=== PATIENT | male | born 1980 | race Two or more races ===

== ENCOUNTER 2024-03-01 00:37 | Emergency (ER) | payer SELFPAY ==
[~2024-03-01] VITALS: Ht 188 cm; Wt 106.2 kg
[2024-03-01 01:06] VITALS: BP 188/128; PULSE 98; RESP 20; O2SAT 98
== END 2024-03-01 02:46 | disposition left against medical advice (07) ==
LOC: ER 00:37
DX: S81.802A Unspecified open wound, left lower leg, initial encounter (principal); S81.801A Unspecified open wound, right lower leg, initial encounter; Z53.21 Procedure and treatment not carried out due to patient leaving prior to being seen by health care provider; X58.XXXA Exposure to other specified factors, initial encounter; Y93.89 Activity, other specified; Y92.89 Other specified places as the place of occurrence of the external cause; Y99.8 Other external cause status

== ENCOUNTER 2025-02-24 10:43 | Inpatient (IN) | payer MEDICAID, OTHER ==
[~2025-02-24] VITALS: Ht 188 cm; Wt 78.2 kg
[2025-02-24 11:21] LABS: Basophils # (auto) 0.1 10 ^3/uL (0-0.2); Basophils % (auto) 0.7 % (0.0-2.0); Eosinophils # (auto) 0.1 10 ^3/uL (0-0.8); Eosinophils % (auto) 1.6 % (0.0-7.0); Hematocrit 55.5 % (41.0-53.0); Hemoglobin 18.7 g/dL (13.5-17.5); Lymphocytes # (auto) 1.6 10 ^3/uL (0.4-5.4); Lymphocytes % (auto) 18.9 % (10.0-50.0); Mean Corpuscular Hemoglobin 28.5 pg (28.0-32.0); Mean Corpuscular Hgb Conc. 33.8 g/dL (32.0-36.0); Mean Corpuscular Volume 84.4 fL (80.0-100.0); Monocytes # (auto) 0.8 10 ^3/uL (0-1.3); Monocytes % (auto) 9.9 % (0.0-12.0); Neutrophils # (auto) 5.7 10 ^3/uL (1.6-8.6); Neutrophils % (auto) 68.9 % (37.0-80.0); Nucleated Red Blood Cells % 0.3 %; Platelet Count (auto) 274 10^3/uL (140-450); Red Blood Cells 6.57 10^6/uL (4.5-5.90); White Blood Cell 8.3 10^3/uL (4.4-10.8)
--- NOTE | 2025-02-24 11:24 | ED.PDOC ---
History of Present Illness HPI Comments 44 y/o M, with a Hx of HTN and polysubstance abuse, presents with c/o shortness of breath and HTN, today. Patient endorses on sudden and unprovoked onset of difficulty breathing, this morning and checking and noticing his blood pressure being elevated. He reports on no improvement to blood pressure with his current 10mg Lisinopril he, usually, takes 1x/day. Patient states on being released from incarceration, last night. During his incarceration, patient reports on 1 hospital visit at [facility] for HTN. Upon arrival to ED and time of initial assessment, patient was found with a blood pressure of 119/98. Patient also admits to recent methamphetamine use 1x week ago. He denies any chest pain, palpitations, dizziness, headache, lightheadedness, fever, chills, or other associated symptoms or modifiers at this time. Chief Complaint: Shortness of Breath Time Seen by MD: 11:00 Reviewed Notes: Nurses Notes, Medications, Allergies Allergies: Coded Allergies: Naproxen (Verified Allergy, Mild, hives, 02/24/25) Information Source: Patient Mode of Arrival: Wheelchair Severity: Moderate Timing: Hours Duration: Since onset Prehospital treatment: None Past Medical History PAST MEDICAL HISTORY: HTN Surgical History (Other): left-shoulder Family History Family History: Unknown Social History Smoker: Cigarettes Alcohol: Occasionally Drugs: Marijuana, Methamphetamine Lives In: Home Constitutional: denies: chills, diaphoresis, fatigue, fever, malaise, sweats, weakness, others EENTM: denies: blurred vision, double vision, ear bleeding, ear discharge, ear drainage, ear pain, ear ringing, eye pain, eye redness, hearing loss, mouth pain, mouth swelling, nasal discharge, nose bleeding, nose congestion, nose pain, photophobia, tearing, throat pain, throat swelling, voice changes, others Respiratory: reports: shortness of breath; denies: cough, hemoptysis, orthopnea, SOB at rest, SOB with excertion, stridor, wheezing, others Cardiovascular: denies: chest pain, dizzy spells, diaphoresis, Dyspnea on exertion, edema, irregular heart beat, left arm pain, lightheadedness, palpitations, PND, syncope, others Gastrointestinal: denies: abdomen distended, abdominal pain, blood streaked bowels, constipated, diarrhea, dysphagia, difficulty swallowing, hematemesis, melena, nausea, poor appetite, poor fluid intake, rectal bleeding, rectal pain, vomiting, others Genitourinary: denies: burning, dysuria, flank pain, frequency, hematuria, incontinence, penile discharge, penile sore, pain, testicle pain, testicle swelling, urgency, others Neurological: denies: dizziness, fainting, headache, left sided numbness, left sided weakness, numbness, paresthesia, pre-existing deficit, right sided numbness, right sided weakness, seizure, speech problems, tingling, tremors, weakness, others Musculoskeletal: denies: back pain, gout, joint pain, joint swelling, muscle pain, muscle stiffness, neck pain, others Integumetry: denies: bruises, change in color, change in hair/nails, dryness, laceration, lesions, lumps, rash, wounds, others Allergic/Immunocompromised: denies: Difficulty Healing, Frequent Infections, Hives, Itching, others Hematologic/Lymphatic: reports: others (HTN); denies: anemia, blood clots, easy bleeding, easy bruising, swollen glands Endocrine: denies: excessive hunger, excessive sweating, excessive thirst, excessive urination, flushing, intolerance to cold, intolerance to heat, unexplained weight gain, unexplained weight loss, others Psychiatric: denies: anxiety, bipolar disorder, depression, hopeless, panic disorder, schizophrenia, sleepless, suicidal, others All Other Systems: Reviewed and Negative Physical Exam General Appearance: Moderate Distress HEENT: Normal ENT Inspection, Pharynx Normal, TMs Normal Neck: Full Range of Motion, Non-Tender, Normal, Normal Inspection Respiratory: Chest Non-Tender, Lungs Clear, No Accessory Muscle Use, No Respiratory Distress, Normal Breath Sounds Cardiovascular: No Edema, No JVD, No Murmur, No Gallop, Normal Peripheral Pulses, Regular Rate/Rhythm Breast Exam: Deferred Gastrointestinal: No Organomegaly, Non Tender, No Pulsatile Mass, Normal Bowel Sounds, Soft Genitalia: Deferred Pelvic: Deferred Rectal: Deferred Extremities: No calf tenderness, Normal capillary refill, Normal inspection, Normal range of motion, Non-tender, No pedal edema Musculoskeletal : Apperance: Normal Neurologic: Alert, child center assistant II-XII nml as Tested, No Motor Deficits, Normal Affect, Normal Mood, No Sensory Deficits Cerebellar Function: Normal Reflexes: Normal Skin: Dry, Normal Color, Warm Lymphatic: No Adenopathy Was a procedure done? Was a procedure done?: No EKG EKG : Pulse Rate (adult): 85 [place]: Normal Cardiac Rhythm: NSR Block: None Hypertrophy: None ST: Ischemia Differential Dx Considerations may include: URI, viral syndrome, PNA, MA, PE, inappropriate medication dosage, among others X-Ray, Labs, Meds, VS Vital Signs Date Time Temp Pulse Resp B/P (MAP) Pulse Ox O2 Delivery O2 Flow Rate FiO2 02/24/25 11:54 86 02/24/25 11:38 98.8 89 16 119/98 (105) 97 98.8 02/24/25 11:24 85 02/24/25 10:57 85 Lab Test 02/24/25 13:51 02/24/25 12:00 02/24/25 11:47 02/24/25 11:02 Range/Units Troponin I High Sensitivity Pending 20 23 </=54 ng/L Urine Color Yellow Yellow Urine Clarity Clear Clear Urine pH 5.5 5.0-9.0 Urine Specific [place] 1.031 1.001-1.035 Urine Protein Trace H Negative Urine Ketones Negative Negative Urine Blood Negative Negative /uL Urine Nitrite Negative Negative Urine Bilirubin Negative Negative Urine Urobilinogen 2 H Negative mg/dL Urine Leukocyte Esterase Negative Negative /uL Urine RBC 2 0 - 3 /hpf Urine Microscopic WBC 2 0-3 /HPF Urine Squamous Epithelial Cells Few <5 /hpf Urine Bacteria Few H None Seen /hpf Urine Mucus Few None Seen Urine Glucose Normal Normal mg/dL Urine Opiates Screen Neg NEGATIVE Urine Fentanyl Screen Neg NEGATIVE Urine Barbiturates Screen Neg NEGATIVE Urine Phencyclidine Screen Neg NEGATIVE Urine Amphetamines Screen Neg NEGATIVE Urine Benzodiazepines Screen Neg NEGATIVE Urine Cocaine Screen Neg NEGATIVE Urine Cannabinoids Screen Pos NEGATIVE White Blood Count 8.3 4.4-10.8 10^3/uL Red Blood Count 6.57 H 4.5-5.90 10^6/uL Hemoglobin 18.7 H 13.5-17.5 g/dL Hematocrit 55.5 H 41.0-53.0 % Mean Corpuscular Volume 84.4 80.0-100.0 fL Mean Corpuscular Hemoglobin 28.5 28.0-32.0 pg Mean Corpuscular Hemoglobin Concent 33.8 32.0-36.0 g/dL Red Cell Distribution Width 16.0 H 11.8-14.3 % Platelet Count 274 140-450 10^3/uL Mean Platelet Volume 7.8 6.9-10.8 fL Neutrophils (%) (Auto) 68.9 37.0-80.0 % Lymphocytes (%) (Auto) 18.9 10.0-50.0 % Monocytes (%) (Auto) 9.9 0.0-12.0 % Eosinophils (%) (Auto) 1.6 0.0-7.0 % Basophils (%) (Auto) 0.7 0.0-2.0 % Neutrophils # (Auto) 5.7 1.6-8.6 10 ^3/uL Lymphocytes # (Auto) 1.6 0.4-5.4 10 ^3/uL Monocytes # (Auto) 0.8 0-1.3 10 ^3/uL Eosinophils # (Auto) 0.1 0-0.8 10 ^3/uL Basophils # (Auto) 0.1 0-0.2 10 ^3/uL Nucleated Red Blood Cells 0.3 % Sodium Level 138 136-145 mmol/L Potassium Level 4.3 3.5-5.1 mmol/L Chloride Level 106 98-107 mmol/L Carbon Dioxide Level 22 20-31 mmol/L Anion Gap 10 5-15 Blood Urea Nitrogen 25 H 9-23 mg/dL Creatinine 0.96 0.700-1.30 mg/dL Glomerular Filtration Rate Calc 99 >90 mL/min BUN/Creatinine Ratio 26.0 H 10.0-20.0 Serum Glucose 98 74-106 mg/dL Hemoglobin A1c Pending Calcium Level 10.1 8.7-10.4 mg/dL B-Type Natriuretic Peptide 68.98 0-100 pg/mL Triglycerides Level Pending Cholesterol Level Pending LDL Cholesterol Pending HDL Cholesterol Pending Thyroid Stimulating Hormone (TSH) Pending IV Hep-Lock was established. The CBC is within normal limits. The chemistry panel is within normal limits. At this time the patient's urine tox is positive for marijuana The urine test is negative for infection at this time The patient's EKG still shows significant ischemia so we did send it over to the car and yard supervisor and they did come down and evaluate the patient. We will continue to follow the serial troponin levels but because of the ongoing symptoms as well as the ischemia we feel that the patient is unstable for transfer to [facility]. We did get an authorization from [facility] for admission at it was [id number] Images Reviewed?: Images reviewed and evaluated by me Time of 1ST Reevaluation: 11:30 Reevaluation 1ST: Unchanged Patient Education/Counseling: Diagnosis, Treatment, Prognosis Family Education/Counseling: No Family Present Departure 1 Departure Time of Disposition: 14:30 Impression: Primary Impression: Acute myocardial ischemia Additional Impression: Accelerated hypertension Disposition: 09 ADMITTED INPATIENT Admit to: [facility] Condition: Fair Critical Care Note Critical Care Time?: Yes (55 min-critical care time only) Stability Stability form required: Yes Unstable for transfer: Telemetry monitoring (Telemetry monitoring required), ED Physician Assesment (Clinical assesment) Heart Score Heart Score: Heart Score Response (Comments) Value History Moderate Suspicious 1 EKG Normal 0 Age 45-64 1 Risk Factors 1 or 2 risk factors 1 Troponin Normal limit 0 Total 3 I personally scribed for DON NORMAN MD ([email or web address]) on 02/24/25 at 11:24. Electronically submitted by Caden Salazar ([email or web address]). DON NORMAN MD Feb 24, 2025 11:24
[2025-02-24 11:29] LABS: Chloride 106 mmol/L (98-107); Potassium 4.3 mmol/L (3.5-5.1); Sodium 138 mmol/L (136-145)
--- NOTE | 2025-02-24 11:29 | DVH ---
XY CHEST TWO VIEWS ROUTINE CLINICAL HISTORY: sob COMPARISON: None TECHNIQUE: Frontal and lateral view of the chest was obtained FINDINGS: Lines and Tubes: None Lungs: No focal consolidation. Pleura: No effusion. No pneumothorax. Cardiomediastinal contours: Unremarkable Bones: No acute osseous abnormality. Old left clavicular fracture. ORIF left humerus. IMPRESSION: 1. No acute cardiopulmonary disease.
[2025-02-24 11:30] LABS: Anion Gap 10 (5-15); Calcium 10.1 mg/dL (8.7-10.4); Carbon Dioxide 22 mmol/L (20-31)
[2025-02-24 11:35] LABS: Blood Urea Nitrogen 25 mg/dL (9-23); Glucose 98 mg/dL (74-106)
[2025-02-24 12:48] LABS: Urine Bacteria FEW /hpf (None Seen); Urine Blood Negative /uL (Negative); Urine Clarity Clear (Clear); Urine Color Yellow (Yellow); Urine Mucus FEW (None Seen); Urine Protein, UAD TRACE (Negative); Urine Specific Gravity 1.031 (1.001-1.035); Urine Squamous Epithelial Cell FEW /hpf (<5); Urine Urobilinogen 2 mg/dL (Negative); Urine WBC 2 /HPF (0-3); Urine pH 5.5 (5.0-9.0)
[2025-02-24 13:00] LABS: Amphetamine Screen, Urine Neg (NEGATIVE)
[2025-02-24 13:01] LABS: Cannabinoid Screen, Urine Pos (NEGATIVE)
[2025-02-24 13:02] LABS: Barbiturate Scree,Urine Neg (NEGATIVE); Benzodiazephine Screen, Urine Neg (NEGATIVE); Cocaine Screen, Urine Neg (NEGATIVE); Opiate Scree,Urine Neg (NEGATIVE); Phencyclidine Screen, Urine Neg (NEGATIVE)
[2025-02-24 14:41] LABS: Triglycerides 123 mg/dL (< 150)
[2025-02-24 14:43] LABS: Cholesterol 174 mg/dL (< 200); HDL Cholesterol 46 mg/dL (40-59)
[2025-02-24 14:46] LABS: LDL Cholesterol 110 mg/dL (< 100)
[2025-02-24 15:47] VITALS: RESP 15; O2SAT 97
[2025-02-24] MEDS: cloNIDine HCL 0.1 MG TAB PO ONE (16:30)
[2025-02-24] MEDS ORDERED: LISI20TA56 PO (16:33)
--- NOTE | 2025-02-24 16:36 | DVHHP2 ---
History of Present Illness Reason for Visit: Shortness of breath History of Present Illness Tyrese Giron IV is a 44-year-old male with past medical history of hypertension, and polysubstance abuse, who comes in with complaints of shortness of breath. Patient states that he has been experiencing shortness of breath for about a week. However, he was incarcerated for the last week and was just released today, so his had him come to the hospital. Patient has a history of hypertension. While incarcerated his BP was elevated with SBP over 200 that he was taken to [facility]. His blood pressure was treated, but his shortness of breath was not addressed. Patient also has complaints of bilateral lower extremity swelling and redness. Cardiovascular: HTN Past Surgical History: Other (left shoulder surgery 2014) Smoke: <1 pack per day ALCOHOL: rare Drugs: Marijuana, Other (methamphetamine - quite 1 week ago) Lives: with Family Domestic Violence: Neg Review of Systems Constitutional: No: Fever, Chills, Sweats, Weakness, Malaise, Other Eyes: No: Pain, Vision change, Conjunctivae inflammation, Eyelid inflammation, Other, Redness ENT: No: Ear pain, Ear discharge, Nose pain, Nose discharge, Nose congestion, Mouth pain, Mouth swelling, Throat pain, Throat swelling, Other Respiratory: Shortness of breath (at rest), SOB with excertion; No: Cough, Dry, Wheezing, Hemoptysis, Pleuritic Pain, Sputum, Wheezing, Other Cardiovascular: Edema (bilateral lower extremities with redness); No: Chest Pain, Palpitations, Orthopnea, Paroxysmal Noc. Dyspnea, Lt Headedness, Other Gastrointestinal: No: Nausea, Vomiting, Abdominal Pain, Diarrhea, Constipation, Melena, Hematochezia, Other Genitourinary: No Dysuria, No Frequency, No Incontinence, No Hematuria, No Re tention, No Other Musculoskeletal: No: other, neck pain, shoulder pain, arm pain, back pain, hand pain, leg pain, foot pain Skin: No: Rash, Lesions, Jaundice, Bruising, Other Neurological: Other (dizziness); No: Weakness, Numbness, Incoordination, Change in speech, Confusion, Seizures Allergies: Coded Allergies: Naproxen (Verified Allergy, Mild, hives, 02/24/25) Medications Current Medications Medications Dose Ordered Sig/[place] Route Start Time Stop Time Status Last Admin Dose Admin Sodium Chloride 10 ml Q8HR IV 02/24/25 22:00 UNV Acetaminophen/ Hydrocodone Bitart 1 tab Q4HP PRN PO 02/24/25 16:45 UNV Ondansetron HCl 4 mg Q4HP PRN IV 02/24/25 16:45 UNV Docusate Sodium 100 mg BIDPRN PRN PO 02/24/25 16:45 UNV Acetaminophen 650 mg Q6HP PRN PO 02/24/25 16:45 UNV Nitroglycerin 0.4 mg Q5MINP PRN SL 02/24/25 16:45 UNV Morphine Sulfate 2 mg Q30M PRN IV 02/24/25 16:45 UNV Lisinopril 20 mg DAILY PO 02/25/25 10:00 UNV Exam Vital Signs Vital Signs Date Time Temp Pulse Resp B/P (MAP) Pulse Ox O2 Delivery O2 Flow Rate FiO2 02/24/25 16:30 142/94 02/24/25 15:47 15 97 Room Air* 0 21 02/24/25 15:47 98.0 94 98.0 General Appearance: Alert, Oriented X3, Cooperative, moderate distress HEENT: Atraumatic, PERRLA Respiratory: Clear to auscultation, Normal air movement Cardiovascular: Regular rate, Normal S1, Normal S2 Abdominal: Normal bowel sounds, Soft, No tenderness Extremities: No clubbing, No cyanosis, Other (Redness, swelling, pain to bilate ral lower extremities) Skin: No rashes, No breakdown, No significant lesion Neuro: Normal gait, Normal speech, Strength at 5/5 X4 ext, Normal tone Psych/Mental Status: Mental status NL, Mood NL Labs/Xrays Labs Test 02/24/25 13:51 02/24/25 12:00 02/24/25 11:02 Range/Units Troponin I High Sensitivity 21 </=54 ng/L Urine Color Yellow Yellow Urine Clarity Clear Clear Urine pH 5.5 5.0-9.0 Urine Specific [place] 1.031 1.001-1.035 Urine Protein Trace H Negative Urine Ketones Negative Negative Urine Blood Negative Negative /uL Urine Nitrite Negative Negative Urine Bilirubin Negative Negative Urine Urobilinogen 2 H Negative mg/dL Urine Leukocyte Esterase Negative Negative /uL Urine RBC 2 0 - 3 /hpf Urine Microscopic WBC 2 0-3 /HPF Urine Squamous Epithelial Cells Few <5 /hpf Urine Bacteria Few H None Seen /hpf Urine Mucus Few None Seen Urine Glucose Normal Normal mg/dL Urine Opiates Screen Neg NEGATIVE Urine Fentanyl Screen Neg NEGATIVE Urine Barbiturates Screen Neg NEGATIVE Urine Phencyclidine Screen Neg NEGATIVE Urine Amphetamines Screen Neg NEGATIVE Urine Benzodiazepines Screen Neg NEGATIVE Urine Cocaine Screen Neg NEGATIVE Urine Cannabinoids Screen Pos NEGATIVE White Blood Count 8.3 4.4-10.8 10^3/uL Red Blood Count 6.57 H 4.5-5.90 10^6/uL Hemoglobin 18.7 H 13.5-17.5 g/dL Hematocrit 55.5 H 41.0-53.0 % Mean Corpuscular Volume 84.4 80.0-100.0 fL Mean Corpuscular Hemoglobin 28.5 28.0-32.0 pg Mean Corpuscular Hemoglobin Concent 33.8 32.0-36.0 g/dL Red Cell Distribution Width 16.0 H 11.8-14.3 % Platelet Count 274 140-450 10^3/uL Mean Platelet Volume 7.8 6.9-10.8 fL Neutrophils (%) (Auto) 68.9 37.0-80.0 % Lymphocytes (%) (Auto) 18.9 10.0-50.0 % Monocytes (%) (Auto) 9.9 0.0-12.0 % Eosinophils (%) (Auto) 1.6 0.0-7.0 % Basophils (%) (Auto) 0.7 0.0-2.0 % Neutrophils # (Auto) 5.7 1.6-8.6 10 ^3/uL Lymphocytes # (Auto) 1.6 0.4-5.4 10 ^3/uL Monocytes # (Auto) 0.8 0-1.3 10 ^3/uL Eosinophils # (Auto) 0.1 0-0.8 10 ^3/uL Basophils # (Auto) 0.1 0-0.2 10 ^3/uL Nucleated Red Blood Cells 0.3 % Sodium Level 138 136-145 mmol/L Potassium Level 4.3 3.5-5.1 mmol/L Chloride Level 106 98-107 mmol/L Carbon Dioxide Level 22 20-31 mmol/L Anion Gap 10 5-15 Blood Urea Nitrogen 25 H 9-23 mg/dL Creatinine 0.96 0.700-1.30 mg/dL Glomerular Filtration Rate Calc 99 >90 mL/min BUN/Creatinine Ratio 26.0 H 10.0-20.0 Serum Glucose 98 74-106 mg/dL Hemoglobin A1c 5.9 H <5.7 % A1C Calcium Level 10.1 8.7-10.4 mg/dL B-Type Natriuretic Peptide 68.98 0-100 pg/mL Triglycerides Level 123 < 150 mg/dL Cholesterol Level 174 < 200 mg/dL LDL Cholesterol 110 H < 100 mg/dL HDL Cholesterol 46 40-59 mg/dL Thyroid Stimulating Hormone (TSH) 3.07 0.55-4.78 uIU/mL XY CHEST TWO VIEWS ROUTINE FINDINGS: Lines and Tubes: None Lungs: No focal consolidation. Pleura: No effusion. No pneumothorax. Cardiomediastinal contours: Unremarkable Bones: No acute osseous abnormality. Old left clavicular fracture. ORIF left humerus. IMPRESSION: 1. No acute cardiopulmonary disease. Assessment/Plan Assessment/Plan Assessment: Accelerated hypertension, Bilateral cellulitis, Possible [place], Plan: Admit to Tele, Cardiology consult, Social service consult, ECHO, TSH, A1c, Lipid panel, IV antibiotics, IV diuretics, Home medications reconciled, Plan discussed with: Patient My Orders Orders - RHIANNON DURON SCIENCE ANALYST Procedure Category Date Status Time Lisinopril Tablet PHA 02/24/25 Logged (Zestril Tablet) 16:45 Admit ADMIT 02/24/25 Transmitted 16:31 Code Status CODE 02/24/25 Transmitted 16:31 2 Gm Sodium Diet DIET 02/24/25 Transmitted Dinner Sodium Chloride Lock PHA 02/24/25 Logged (Saline Lock Ns) 22:00 Hydrocodone-Acet PHA 02/24/25 Logged 5/325mg Tab ([place] 16:45 Ondansetron Hcl PHA 02/24/25 Logged (Zofran) 16:45 Docusate Sodium PHA 02/24/25 Logged Capsule (Colace 16:45 Complete Blood Count LAB 02/25/25 Verified 04:00 Comprehensive LAB 02/25/25 Verified Metabolic Panel 04:00 Condition: Serious MARIYA 02/24/25 In Process 16:31 Acetaminophen Tablet PHA 02/24/25 Logged (Tylenol Tablet) 16:45 Nitroglycerin PHA 02/24/25 Logged Sublingual (Ntrostat 16:45 Morphine Sulfate PHA 02/24/25 Logged Injection 16:45 Stat Ekg For Chest MARIYA 02/24/25 In Process Pain 16:31 Notify Md Of Changes [facility] 02/24/25 In Process From Base 16:31 Correctional Medicine Physician For [facility] 02/24/25 In Process 24 Hours 16:31 Emergency Dysrhythmia [facility] 02/24/25 In Process Protocol 16:31 Rhythm Strips Once [facility] 02/24/25 In Process Every Shift 16:31 Oxygen By Nasal 02/24/25 Transmitted Cannula 16:31 Lisinopril Tablet [facility] 02/25/25 Logged (Zestril Tablet) 10:00 Furosemide Injection [facility] 02/24/25 Logged (Lasix Injection) 16:45 Clindamycin Ivpb [facility] 02/24/25 Verified Cleocin 22:00 Date of Service: Feb 24, 2025 Billing Provider: RHIANNON DURON Common Visit Codes: [id number] INP/OBS CARE (MOD) RHIANNON DURON Feb 24, 2025 16:36
[2025-02-24] MEDS ORDERED: HYDROcodone-ACET 5/325MG TAB PO PRN (16:45)
[2025-02-24] MEDS ORDERED: ONDANSETRON HCL 4 MG/2 ML VIAL IV PRN (16:45)
[2025-02-24] MEDS ORDERED: MORPHINE SULFATE INJ 2 MG/ml SYRG IV PRN (16:45)
[2025-02-24] MEDS ORDERED: ACETAMINOPHEN 325 MG TAB PO PRN (16:45)
[2025-02-24] MEDS ORDERED: DOCUSATE SOD 100 MG CAP PO PRN (16:45)
[2025-02-24] MEDS ORDERED: NITROGLYCERIN 0.4 MG SL TAB SL PRN (16:45)
--- NOTE | 2025-02-24 18:33 | DVHINCON2 ---
Date Seen: Feb 24, 2025 Referring Physician MD Hayde Reason for Consultation Ischemic ECG changes History of Present Illness This is a 44-year-old man who presented to the emergency room with a chief complaint of shortness of breath. The patient complains of exertional shortness of breath associated with dizziness, diaphoresis, and some palpitations prompting him to seek further medical attention. He underwent multiple 12 lead electrocardiograms revealing a sinus rhythm with dynamic changes including ST segment depression to anteroseptal leads. Serial troponins are negative. The patient endorses some of his symptoms might be secondary to uncontrolled blood pressure as he recently presented to [facility] and this past Sunday with a systolic blood pressure in the 200s mmHg. At that time, he was discharged from the emergency room on antihypertensive therapy and antibiotics for his lower extremities. Significant medical history includes hypertension, current tobacco use including a 13 pack-year history, current methamphetamine use on/off for 12 years, and alcohol use including 1-2 beers/day. Past Medical History Past medical history reviewed. No other significant than mentioned above. Past Surgical History Left shoulder, 2014 Family History Family history reviewed. Significant for father with CHF and PPM. Social History See HPI. Allergies: Coded Allergies: Naproxen (Verified Allergy, Mild, hives, 02/24/25) Home Meds Reported Medications Lisinopril (Lisinopril) 20 Mg Tab, 1 TAB PO DAILY, #30 TAB 5 Refills 02/24/25 Home Meds Home medications reviewed. Current Medications Current Medications Medications (Trade) Dose Ordered Sig/Belen Route PRN Reason Start Time Stop Time Status Last Admin Sodium Chloride (Saline Lock Ns) 10 ml Q8HR IV 02/24/25 22:00 Acetaminophen/ Hydrocodone Bitart ([place] 5/325MG Tab) 1 tab Q4HP PRN PO MODERATE PAIN (4-6 PAIN SCALE) 02/24/25 16:45 Ondansetron HCl (Zofran) 4 mg Q4HP PRN IV NAUSEA / VOMITING 02/24/25 16:45 Docusate Sodium (Colace Capsule) 100 mg BIDPRN PRN PO FOR CONSTIPATION 02/24/25 16:45 Acetaminophen (Tylenol Tablet) 650 mg Q6HP PRN PO PAIN SCALE 1-3 OR TEMP>100.4 02/24/25 16:45 Nitroglycerin (Ntrostat Sublingual) 0.4 mg Q5MINP PRN SL FOR CHEST PAIN 02/24/25 16:45 Morphine Sulfate 2 mg Q30M PRN IV FOR CHEST PAIN 02/24/25 16:45 Lisinopril (Zestril Tablet) 20 mg DAILY PO 02/25/25 10:00 Clindamycin Phosphate 50 ml @ 50 mls/hr 0600,0700,1400,1500,2200,2300 IV 02/24/25 22:00 Furosemide (Lasix Injection) 20 mg DAILY IV 02/25/25 10:00 Review of Systems Constitutional: Diaphoresis Ears, Nose, & Throat: No symptom reported Eyes: No symptom reported Neurological: Dizziness Pulmonary/Respiratory: ARREDONDO Cardiovascular: No symptom reported Gastrointestinal: No symptom reported Genitourinary: No symptom reported Musculoskeletal: No symptom reported Skin: No symptom reported Psychiatric: No symptom reported Endocrine: No symptom reported Hemotologic/Lymphatic: No symptom reported Vital Signs Vital Signs Date Time Temp Pulse Resp B/P (MAP) Pulse Ox O2 Delivery O2 Flow Rate FiO2 02/24/25 16:30 142/94 02/24/25 15:47 15 97 Room Air* 0 21 02/24/25 15:47 98.0 94 98.0 Physical Exam General Appearance: Cooperative. Unkept. Somewhat disheveled. In no acute distress Head Exam: Normal inspection Neck Exam: Normal inspection. Non-tender. Normal alignment Pulmonary/Respiratory: Chest non-tender. Clear bilateral breath sounds Cardiovascular/Chest: Regular rate and rhythm. S1, S2. Sinus rhythm with dynamic changes including ST depression to anteroseptal leads. No murmurs. No JVD. Peripheral Pulses: 2+ Radial (R). 2+ Radial (L). 2+ Pedal (R). 2+ Pedal (L) Abdominal Exam: Normal bowel sounds. Soft. Ankle Exam: Positive ankle edema Lower extremities: Positive lower extremity edema Neuro/Mental Status: A&O x3. Coherent Thoughts/Psych: Normal thought pattern. Appropriate mood and affect. Good judgement and insight Appearance: In no acute distress Skin Exam: Hyperkeratosis to bilateral lower extremities Labs/Diagnostic Data Labs Test 02/24/25 13:51 02/24/25 12:00 02/24/25 11:02 Range/Units Troponin I High Sensitivity 21 </=54 ng/L Urine Color Yellow Yellow Urine Clarity Clear Clear Urine pH 5.5 5.0-9.0 Urine Specific [place] 1.031 1.001-1.035 Urine Protein Trace H Negative Urine Ketones Negative Negative Urine Blood Negative Negative /uL Urine Nitrite Negative Negative Urine Bilirubin Negative Negative Urine Urobilinogen 2 H Negative mg/dL Urine Leukocyte Esterase Negative Negative /uL Urine RBC 2 0 - 3 /hpf Urine Microscopic WBC 2 0-3 /HPF Urine Squamous Epithelial Cells Few <5 /hpf Urine Bacteria Few H None Seen /hpf Urine Mucus Few None Seen Urine Glucose Normal Normal mg/dL Urine Opiates Screen Neg NEGATIVE Urine Fentanyl Screen Neg NEGATIVE Urine Barbiturates Screen Neg NEGATIVE Urine Phencyclidine Screen Neg NEGATIVE Urine Amphetamines Screen Neg NEGATIVE Urine Benzodiazepines Screen Neg NEGATIVE Urine Cocaine Screen Neg NEGATIVE Urine Cannabinoids Screen Pos NEGATIVE White Blood Count 8.3 4.4-10.8 10^3/uL Red Blood Count 6.57 H 4.5-5.90 10^6/uL Hemoglobin 18.7 H 13.5-17.5 g/dL Hematocrit 55.5 H 41.0-53.0 % Mean Corpuscular Volume 84.4 80.0-100.0 fL Mean Corpuscular Hemoglobin 28.5 28.0-32.0 pg Mean Corpuscular Hemoglobin Concent 33.8 32.0-36.0 g/dL Red Cell Distribution Width 16.0 H 11.8-14.3 % Platelet Count 274 140-450 10^3/uL Mean Platelet Volume 7.8 6.9-10.8 fL Neutrophils (%) (Auto) 68.9 37.0-80.0 % Lymphocytes (%) (Auto) 18.9 10.0-50.0 % Monocytes (%) (Auto) 9.9 0.0-12.0 % Eosinophils (%) (Auto) 1.6 0.0-7.0 % Basophils (%) (Auto) 0.7 0.0-2.0 % Neutrophils # (Auto) 5.7 1.6-8.6 10 ^3/uL Lymphocytes # (Auto) 1.6 0.4-5.4 10 ^3/uL Monocytes # (Auto) 0.8 0-1.3 10 ^3/uL Eosinophils # (Auto) 0.1 0-0.8 10 ^3/uL Basophils # (Auto) 0.1 0-0.2 10 ^3/uL Nucleated Red Blood Cells 0.3 % Sodium Level 138 136-145 mmol/L Potassium Level 4.3 3.5-5.1 mmol/L Chloride Level 106 98-107 mmol/L Carbon Dioxide Level 22 20-31 mmol/L Anion Gap 10 5-15 Blood Urea Nitrogen 25 H 9-23 mg/dL Creatinine 0.96 0.700-1.30 mg/dL Glomerular Filtration Rate Calc 99 >90 mL/min BUN/Creatinine Ratio 26.0 H 10.0-20.0 Serum Glucose 98 74-106 mg/dL Hemoglobin A1c 5.9 H <5.7 % A1C Calcium Level 10.1 8.7-10.4 mg/dL B-Type Natriuretic Peptide 68.98 0-100 pg/mL Triglycerides Level 123 < 150 mg/dL Cholesterol Level 174 < 200 mg/dL LDL Cholesterol 110 H < 100 mg/dL HDL Cholesterol 46 40-59 mg/dL Thyroid Stimulating Hormone (TSH) 3.07 0.55-4.78 uIU/mL Assessment Acute coronary syndrome Rule out coronary artery disease Rule out structural heart disease Hypertension Dyslipidemia, newly diagnosed Prediabetes, newly diagnosed Polysubstance abuse including methamphetamines Nicotine dependance Plan/Recommendation (Dr. Arora) Case discussed with Dr. Arora. The patient presents with acute coronary syndrome, dynamic 12 lead electrocardiogram changes suggestive of possible LAD lesion, and a Heart Score of 7 placing him at high-risk for major cardiac events. Given polysubstance abuse a conversation was held with the patient in regards of aggressive risk factor modifications. The patient states he wants to see his 7 y.o. son grow up and moving forward he will comply with any medical recommendations given. He is scheduled for a cardiac catheterization and coronary angiogram with Dr. Arora on 02/25/2025. All risks and benefits of the procedure were discussed with the patient who agrees to proceed with intervention. All questions answered. In the meantime, continue with a transthoracic echocardiogram to evaluate cardiac function. Initiate single- antiplatelet therapy and lipid lowering agent. Monitor ECG changes closely and notify. Obtain head CT. Thank you for allowing us to participate in this patient's care. Please call if you have any questions or concerns. This medical document was created using an electronic medical record system with voice recognition software and computerized dictation system. Although this document has been carefully reviewed, there might still be some phonetic and typographical errors. Occasional wrong-word or ``sound-alike substitutions may have occurred due to the inherent limitations of voice recognition software. These areas are purely typographical due to imperfections of the software programs and do not reflect any compromise in the patient's medical care. Please read the chart carefully and recognize, using context, where these substitutions have occurred. Plan discussed with: Patient, Other NYHA Physical activity limitations: NA Date of Service: Feb 24, 2025 Billing Provider: JOHAN MENENDEZ Cardiology Common Codes: 32938-[id number] INP/OBS CARE (High) JOHAN MENENDEZ Feb 24, 2025 18:33
--- NOTE | 2025-02-24 19:45 | DVH ---
CT HEAD WITHOUT CONTRAST INDICATION: Persistent dizziness COMPARISON: None TECHNIQUE: CT of the head without intravenous contrast. RADIATION DOSE: CTDIvol: 56.63 mGy, DLP: 1002.81 mGy*cm FINDINGS: There is no evidence of intracranial hemorrhage, infarct, extra-axial collection, mass effect, midli ne shift, herniation or hydrocephalus. The ventricles, sulci and cisterns are normal. The mccoy-white differentiation is normal. Evidence of a left-sided nasolabial cyst measuring up to 2 cm. Minimal mucosal thickening in maxillar y sinuses; otherwise unremarkable. Mastoid air cells and middle ear cavities are clear. Evidence of m ild old fracture of right medial orbital wall. No additional osseous abnormality noted. IMPRESSION: No intracranial abnormality identified.
--- NOTE | 2025-02-24 23:09 | ECG ---
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
[2025-02-24] MEDS: SODIUM CHLOR 0.9% PF (SALINE LOCK) 10ML VIAL/SYR IV SCH (23:23)
[2025-02-24] MEDS: LISINOPRIL 20 MG TAB PO ONE (23:34)
[2025-02-24] MEDS: ASPirin 81 mg TAB PO ONE (23:34)
[2025-02-24] MEDS: FUROSEMIDE 20 MG/2 ML VIAL IV ONE (23:34)
[2025-02-24] MEDS: ATORVASTATIN 20 MG TAB PO SCH (23:34)
[2025-02-24] MEDS: ENOXAPARIN SOD 80 MG/0.8ML SYRINGE SC ONE (23:35)
[2025-02-24 23:48] VITALS: BP 152/92; PULSE 86; PULSE 88; RESP 18; RESP 19; TEMP 98.2; O2SAT 96
[2025-02-25] VITALS (8 sets, daily range): BP systolic 121–167; BP diastolic 77–112; PULSE 70–90; RESP 15–19; TEMP 97.4–97.5; O2SAT 95–99
[2025-02-25] MEDS: CLINDAMYCIN 300MG IV 50 ML IV SCH
[2025-02-25 04:36] LABS: Basophils # (auto) 0.1 10 ^3/uL (0-0.2); Basophils % (auto) 0.8 % (0.0-2.0); Eosinophils # (auto) 0.3 10 ^3/uL (0-0.8); Eosinophils % (auto) 4.2 % (0.0-7.0); Hematocrit 53.4 % (41.0-53.0); Hemoglobin 17.2 g/dL (13.5-17.5); Lymphocytes # (auto) 2.1 10 ^3/uL (0.4-5.4); Lymphocytes % (auto) 28.4 % (10.0-50.0); Mean Corpuscular Hemoglobin 27.4 pg (28.0-32.0); Mean Corpuscular Hgb Conc. 32.2 g/dL (32.0-36.0); Mean Corpuscular Volume 85.1 fL (80.0-100.0); Monocytes # (auto) 0.9 10 ^3/uL (0-1.3); Monocytes % (auto) 11.6 % (0.0-12.0); Nucleated Red Blood Cells % 0.4 %; Platelet Count (auto) 219 10^3/uL (140-450); Red Blood Cells 6.27 10^6/uL (4.5-5.90); Red Cell Distribution Width 16.4 % (11.8-14.3); White Blood Cell 7.3 10^3/uL (4.4-10.8)
[2025-02-25 04:45] LABS: Alanine Aminotransferase 25 U/L (7-40); Albumin 4.3 g/dL (3.2-4.8); Anion Gap 6 (5-15); Aspartate Aminotransferase 36 U/L (13-40); Calcium 9.7 mg/dL (8.7-10.4); Carbon Dioxide 27 mmol/L (20-31); Chloride 106 mmol/L (98-107); Glucose 80 mg/dL (74-106); Potassium 4.4 mmol/L (3.5-5.1); Sodium 139 mmol/L (136-145); Total Protein 7.3 g/dL (5.7-8.2)
[2025-02-25 04:46] LABS: Bilirubin, Total 0.8 mg/dL (0.2-1.0)
[2025-02-25 04:52] LABS: Alkaline Phosphatase 140 U/L (46-116)
[2025-02-25 05:02] LABS: INR 1.19 (0.9-1.15); Partial Thromboplastin Time 32.1 SEC (24.5-34.5); Prothrombin Time 12.4 sec (9.3-11.8)
[2025-02-25 05:07] LABS: BUN/Creatinine Ratio 24.5 (10.0-20.0)
[2025-02-25 05:13] LABS: Blood Urea Nitrogen 26 mg/dL (9-23)
--- NOTE | 2025-02-25 09:12 | ECG ---
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
[2025-02-25] MEDS: FUROSEMIDE 20 MG/2 ML VIAL IV SCH (09:36)
[2025-02-25] MEDS: ASPirin 81 mg TAB PO SCH (09:36)
[2025-02-25] MEDS: LISINOPRIL 20 MG TAB PO SCH (09:36)
--- NOTE | 2025-02-25 14:27 | DVHPN2 ---
Subjective Continues to have intermittent chest pain Reviewed: Care Plan, H&P, Labs, Previous Orders Changes from previous H/P or p: No Changes General: Per HPI Eyes: No Pain, No Vision change, No Conjunctivae inflammation, No Eyelid inflammation, No Other, No Redness ENT: No Ear pain, No Ear discharge, No Nose pain, No Nose discharge, No Nose congestion, No Mouth pain, No Mouth swelling, No Throat pain, No Throat swelling, No Other Cardiovascular: No Chest Pain, No Palpitations, No Orthopnea, No Paroxysmal Noc. Dyspnea; Edema (bilateral lower extremities with redness); No Lt Headedness, No Other Respiratory: No Cough, No Dry; Shortness of breath (at rest), SOB with excertion; No Wheezing, No Hemoptysis, No Pleuritic Pain, No Sputum, No Other Gastrointestinal: No Nausea, No Vomiting, No Abdominal Pain, No Diarrhea, No Constipation, No Melena, No Hematochezia, No Other Genitourinary: No Dysuria, No Frequency, No Incontinence, No Hematuria, No Retention, No Other Musculoskeletal: No other, No neck pain, No shoulder pain, No arm pain, No back pain, No hand pain, No leg pain, No foot pain Skin: No Rash, No Lesions, No Jaundice, No Bruising, No Other Objective Vitals Vital Signs Date Time Temp Pulse Resp B/P (MAP) Pulse Ox O2 Delivery O2 Flow Rate FiO2 02/25/25 13:00 97.4 80 17 121/77 (92) 98 97.4 02/24/25 23:48 Room Air* 0 21 Intake/Output Intake and Output 02/25/25 07:00 Intake Total 500 ml Balance 500 ml Intake Oral 500 ml # Voids 2 General Appearance: Alert, Oriented X3, Cooperative, mild distress HEENT: Atraumatic, PERRLA Lungs: Clear to auscultation, Normal air movement Cardiovascular: Normal S1, Normal S2 Abdomen: Normal bowel sounds, Soft, No tenderness, No hepatospenomegaly, No masses Genitourinary: No Apparent Abnormalities Back: Flank Tenderness, Midline Tenderness Musculoskeletal: Normal sensory function, Normal motor function Extremities: No clubbing, No cyanosis Neuro: Normal gait, Normal speech ( ), Cranial nerves 3-12 NL Skin: Dry, Intact Psych/Mental Status: Mental status NL, Mood NL Medications Current Medications Medications Dose Ordered Sig/Belen Route Start Time Stop Time Status Last Admin Dose Admin Sodium Chloride 10 ml Q8HR IV 02/24/25 22:00 02/25/25 07:56 10 ML Acetaminophen/ Hydrocodone Bitart 1 tab Q4HP PRN PO 02/24/25 16:45 Ondansetron HCl 4 mg Q4HP PRN IV 02/24/25 16:45 Docusate Sodium 100 mg BIDPRN PRN PO 02/24/25 16:45 Acetaminophen 650 mg Q6HP PRN PO 02/24/25 16:45 Nitroglycerin 0.4 mg Q5MINP PRN SL 02/24/25 16:45 Morphine Sulfate 2 mg Q30M PRN IV 02/24/25 16:45 Lisinopril 20 mg DAILY PO 02/25/25 10:00 02/25/25 09:36 20 MG Clindamycin Phosphate 50 ml @ 50 mls/hr 0600,0700,1400,1500,2200,2300 IV 02/24/25 22:00 02/25/25 09:35 50 MLS/HR Furosemide 20 mg DAILY IV 02/25/25 10:00 02/25/25 09:36 20 MG Aspirin 81 mg DAILY PO 02/25/25 10:00 02/25/25 09:36 81 MG Atorvastatin Calcium 40 mg HS PO 02/24/25 22:00 02/24/25 23:34 40 MG Laboratory Results Laboratory Tests 02/25/25 03:59 Chemistry Test 02/25/25 03:59 Albumin 4.3 g/dL (3.2-4.8) Calcium Level 9.7 mg/dL (8.7-10.4) Total Protein 7.3 g/dL (5.7-8.2) Coagulation Test 02/25/25 03:59 Prothrombin Time 12.4 sec (9.3-11.8) H Prothrombin Time INR 1.19 (0.9-1.15) H Activated Partial Thromboplast Time 32.1 SEC (24.5-34.5) LFT Test 02/25/25 03:59 Alanine Aminotransferase (ALT) 25 U/L (7-40) Alkaline Phosphatase 140 U/L (46-116) H Aspartate Amino Transferase (AST) 36 U/L (13-40) Total Bilirubin 0.8 mg/dL (0.2-1.0) Urinalysis Test 02/24/25 12:00 Urine Color Yellow (Yellow) Urine Clarity Clear (Clear) Urine pH 5.5 (5.0-9.0) Urine Specific [place] 1.031 (1.001-1.035) Urine Protein Trace (Negative) H Urine Ketones Negative (Negative) Urine Blood Negative /uL (Negative) Urine Nitrite Negative (Negative) Urine Bilirubin Negative (Negative) Urine Urobilinogen 2 mg/dL (Negative) H Urine Leukocyte Esterase Negative /uL (Negative) Urine RBC 2 /hpf (0 - 3) Urine Microscopic WBC 2 /HPF (0-3) Urine Squamous Epithelial Cells Few /hpf (<5) Urine Bacteria Few /hpf (None Seen) H Urine Mucus Few (None Seen) Urine Glucose Normal mg/dL (Normal) Labs and/or images reviewed: Labs reviewed by me, Image(s) reviewed by me Assessment/Plan Assessment/Plan Impression: -Chest pain, rule out ACS -History of use amphetamine use -Accelerated hypertension Plan discussed with: Patient, Other (RN) My Orders Orders - CRISTA WORTHINGTON NP Procedure Category Date Status Time * 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
[2025-02-25] MEDS: IODIXANOL 320MG/ML 100ML BTL IV ONE (18:17)
[2025-02-25] MEDS: LIDOCAINE 2%HCL (LOCAL ANESTH.) INJ 20ML MDV ONE (18:44)
[2025-02-25] MEDS: VERAPAMIL 2.5MG/ML INJ 2ML VIAL IV ONE (18:45)
[2025-02-25] MEDS: ANGIOMAX 250 MG VIAL IV ONE (18:45)
[2025-02-25] MEDS: HEPARIN SODIUM (PORCINE) 5000 UNITS/ML 1ML VIAL ONE (18:45)
[2025-02-25] MEDS: fentaNYL CITRATE 100 MCG/2 ML VL ONE (18:46)
[2025-02-25] MEDS: SODIUM CHL 0.9% 0 ML ONE (18:47)
[2025-02-25] MEDS: MIDAZOLAM HCL 2MG/2ML 2ml VIAL (1mg/ml) ONE (18:47)
--- NOTE | 2025-02-25 19:22 | DVHOP2 ---
Operative Report - 2 Report Details Date: 02/25/25 Preop Diagnosis: Acute coronary syndrome Postop Diagnosis: Normal coronary arteries normal ejection fraction Surgeon: Link Arora MD Anesthesiologist: Conscious sedation Anesthesia: Mac, Local (Versed and fentanyl given preoperatively. Patient monitored throughout procedure) Consent: The patient was informed of the risks and benefits of the procedure. These include but are not limited to complications of anesthesia, postoperative infection, incomplete relief of symptoms, recurrence of symptoms, damage to blood vessels, nerves and tendons, deep venous thrombosis, pulmonary embolism and possible need for repeat surgery in the future. Complications: No complications Estimated Blood Loss: 5 cc Findings: Normal coronary arteries. Normal ejection fraction. Indications for Surgery: Chest pain. Abnormal EKG. Name of Procedure Performed Left heart catheterization bilateral cine coronary angiography. Left ventriculography. Procedure Details Procedure Details: Prior local anesthesia with 2% lidocaine to the right wrist and full informed consent obtained the patient was prepped and draped in usual fashion followed by placement of a six Chadian sheath into the radial artery through which a Lennox catheter was used for ventriculography and cannulation of both right and left c oronary ostia. No complications Hemodynamics: Aortic blood pressure was 130/70. End-diastolic pressure was 16. There was no gradient across the aortic valve on pullback. Coronary anatomy: The RCA is a large vessel it is dominant. The RCA and post erolateral branches as well as a PDA are normal. Left main is large and normal. The circumflex is large with two marginals free of significant disease. Left anterior descending coronary artery is a large vessel it is normal in its proximal mid and distal segments. Ventriculography in the JORDAN projection shows an EF of 65% Impression: Normal left ventricular end-diastolic pressure at rest. Normal ejection fraction. No significant CAD. Recommendations medical therapy is warranted continue risk factor modification. Condition Good Disposition Still a Patient Date of Service: Feb 25, 2025 Billing Provider: LINK ARORA Sr., MD Cardiology Common Codes: [id number] INP/OBS CARE (High) Cardiology Procedure Codes: 16204-SDNI ADD CORONARY BRANCH, 79402-QFX W/IMG DOC INCL PROB ACQ, 39815-IFVA HEART CATH W/INTRA INJ LINK ARORA Sr., MD Feb 25, 2025 19:22
[2025-02-26 01:00] VITALS: BP 123/84; PULSE 91; RESP 17; TEMP 98.4; O2SAT 94
[2025-02-26 05:00] VITALS: BP 139/83; PULSE 86; RESP 17; TEMP 98.7; O2SAT 96
[2025-02-26 08:00] VITALS: PULSE 90
[2025-02-26 08:13] LABS: Basophils # (auto) 0.1 10 ^3/uL (0-0.2); Eosinophils # (auto) 0.4 10 ^3/uL (0-0.8); Lymphocytes # (auto) 1.6 10 ^3/uL (0.4-5.4); Mean Corpuscular Volume 84.5 fL (80.0-100.0); Monocytes # (auto) 0.7 10 ^3/uL (0-1.3); Neutrophils # (auto) 3.4 10 ^3/uL (1.6-8.6); Red Cell Distribution Width 15.8 % (11.8-14.3); White Blood Cell 6.2 10^3/uL (4.4-10.8)
[2025-02-26 08:16] LABS: Basophils % (auto) 0.9 % (0.0-2.0); Eosinophils % (auto) 6.8 % (0.0-7.0); Hematocrit 50.7 % (41.0-53.0); Hemoglobin 17.1 g/dL (13.5-17.5); Lymphocytes % (auto) 26.1 % (10.0-50.0); Mean Corpuscular Hemoglobin 28.4 pg (28.0-32.0); Mean Corpuscular Hgb Conc. 33.6 g/dL (32.0-36.0); Neutrophils % (auto) 55.2 % (37.0-80.0); Nucleated Red Blood Cells % 0.4 %; Platelet Count (auto) 214 10^3/uL (140-450); Red Blood Cells 6.01 10^6/uL (4.5-5.90)
[2025-02-26 08:25] LABS: Alanine Aminotransferase 27 U/L (7-40); Anion Gap 8 (5-15); BUN/Creatinine Ratio 27.4 (10.0-20.0); Calcium 9.5 mg/dL (8.7-10.4); Carbon Dioxide 26 mmol/L (20-31); Chloride 105 mmol/L (98-107); Potassium 4.4 mmol/L (3.5-5.1); Sodium 139 mmol/L (136-145); Total Protein 6.8 g/dL (5.7-8.2)
[2025-02-26 08:26] LABS: Alkaline Phosphatase 127 U/L (46-116); Aspartate Aminotransferase 35 U/L (13-40); Bilirubin, Total 0.8 mg/dL (0.2-1.0); Blood Urea Nitrogen 26 mg/dL (9-23); Glucose 117 mg/dL (74-106)
[2025-02-26 09:00] VITALS: BP 116/77; PULSE 84; RESP 16; TEMP 97.7; O2SAT 95
[2025-02-26 12:49] VITALS: BP 155/91; PULSE 107; RESP 18; TEMP 98.1; O2SAT 100
--- NOTE | 2025-02-26 14:04 | DVHDS2 ---
Discharge Summary Date of Admission Feb 24, 2025 at 16:31 Date of Discharge: Feb 26, 2025 Labs/Diagnostic Data: Laboratory Results Test 02/26/25 07:21 02/25/25 03:59 02/24/25 13:51 02/24/25 12:00 White Blood Count 6.2 10^3/uL (4.4-10.8) Red Blood Count 6.01 10^6/uL (4.5-5.90) Hemoglobin 17.1 g/dL (13.5-17.5) Hematocrit 50.7 % (41.0-53.0) Mean Corpuscular Volume 84.5 fL (80.0-100.0) Mean Corpuscular Hemoglobin 28.4 pg (28.0-32.0) Mean Corpuscular Hemoglobin Concent 33.6 g/dL (32.0-36.0) Red Cell Distribution Width 15.8 % (11.8-14.3) Platelet Count 214 10^3/uL (140-450) Mean Platelet Volume 8.1 fL (6.9-10.8) Neutrophils (%) (Auto) 55.2 % (37.0-80.0) Lymphocytes (%) (Auto) 26.1 % (10.0-50.0) Monocytes (%) (Auto) 11.0 % (0.0-12.0) Eosinophils (%) (Auto) 6.8 % (0.0-7.0) Basophils (%) (Auto) 0.9 % (0.0-2.0) Neutrophils # (Auto) 3.4 10 ^3/uL (1.6-8.6) Lymphocytes # (Auto) 1.6 10 ^3/uL (0.4-5.4) Monocytes # (Auto) 0.7 10 ^3/uL (0-1.3) Eosinophils # (Auto) 0.4 10 ^3/uL (0-0.8) Basophils # (Auto) 0.1 10 ^3/uL (0-0.2) Nucleated Red Blood Cells 0.4 % Sodium Level 139 mmol/L (136-145) Potassium Level 4.4 mmol/L (3.5-5.1) Chloride Level 105 mmol/L (98-107) Carbon Dioxide Level 26 mmol/L (20-31) Anion Gap 8 (5-15) Blood Urea Nitrogen 26 mg/dL (9-23) Creatinine 0.95 mg/dL (0.700-1.30) Glomerular Filtration Rate Calc 101 mL/min (>90) BUN/Creatinine Ratio 27.4 (10.0-20.0) Serum Glucose 117 mg/dL (74-106) Calcium Level 9.5 mg/dL (8.7-10.4) Total Bilirubin 0.8 mg/dL (0.2-1.0) Aspartate Amino Transferase (AST) 35 U/L (13-40) Alanine Aminotransferase (ALT) 27 U/L (7-40) Alkaline Phosphatase 127 U/L (46-116) Total Protein 6.8 g/dL (5.7-8.2) Albumin 4.0 g/dL (3.2-4.8) Prothrombin Time 12.4 sec (9.3-11.8) Prothrombin Time INR 1.19 (0.9-1.15) Activated Partial Thromboplast Time 32.1 SEC (24.5-34.5) Troponin I High Sensitivity 21 ng/L (</=54) Urine Color Yellow (Yellow) Urine Clarity Clear (Clear) Urine pH 5.5 (5.0-9.0) Urine Specific [place] 1.031 (1.001-1.035) Urine Protein Trace (Negative) Urine Ketones Negative (Negative) Urine Blood Negative /uL (Negative) Urine Nitrite Negative (Negative) Urine Bilirubin Negative (Negative) Urine Urobilinogen 2 mg/dL (Negative) Urine Leukocyte Esterase Negative /uL (Negative) Urine RBC 2 /hpf (0 - 3) Urine Microscopic WBC 2 /HPF (0-3) Urine Squamous Epithelial Cells Few /hpf (<5) Urine Bacteria Few /hpf (None Seen) Urine Mucus Few (None Seen) Urine Glucose Normal mg/dL (Normal) Urine Opiates Screen Neg (NEGATIVE) Urine Fentanyl Screen Neg (NEGATIVE) Urine Barbiturates Screen Neg (NEGATIVE) Urine Phencyclidine Screen Neg (NEGATIVE) Urine Amphetamines Screen Neg (NEGATIVE) Urine Benzodiazepines Screen Neg (NEGATIVE) Urine Cocaine Screen Neg (NEGATIVE) Urine Cannabinoids Screen Pos (NEGATIVE) Test 02/24/25 11:02 Hemoglobin A1c 5.9 % A1C (<5.7) B-Type Natriuretic Peptide 68.98 pg/mL (0-100) Triglycerides Level 123 mg/dL (< 150) Cholesterol Level 174 mg/dL (< 200) LDL Cholesterol 110 mg/dL (< 100) HDL Cholesterol 46 mg/dL (40-59) Thyroid Stimulating Hormone (TSH) 3.07 uIU/mL (0.55-4.78) Other Laboratory Tests 02/26/25 07:21 Brief Hx & Hospital Course: History of Present Illness Tyrese Giron IV is a 44-year-old male with past medical history of hypertension, and polysubstance abuse, who comes in with complaints of shortness of breath. Patient states that he has been experiencing shortness of breath for about a week. However, he was incarcerated for the last week and was just released today, so his had him come to the hospital. Patient has a history of hypertension. While incarcerated his BP was elevated with SBP over 200 that he was taken to [facility]. His blood pressure was treated, but his shortness of breath was not addressed. Patient also has complaints of bilateral lower extremity swelling and redness. Course of hospitalization: Patient was found to have multiple ST depressions. Echocardiogram was performed. Patient was evaluated by Cardiology, undergoing left heart catheterization yesterday without any noted CAD. Patient was also found to have accelerated hypertension. Patient was educated on the need to control his blood pressure. Patient was also instructed to attempt to abstain from smoking any type of substances given his chest pain. Patient verbalized understanding. He will be continued on his previous antihypertensives. All questions answered. Physical examination General: Alert and Oriented x3. No acute distress. Well-nourished. Eyes: EOMI. Anicteric. HENT: Moist mucous membranes. Lungs: Clear to auscultation bilaterally. No accessory muscle use. Cardiovascular: Regular rate and rhythm. No murmur. No JVD. Abdomen: Soft, non-tender and non-distended. No palpable masses. Extremities: No edema. Non-tender. Skin: No rashes or lesions. Warm. Neurologic: No focal neurological deficits. CN II-XII grossly intact, but not individually tested. Psychiatric: Cooperative. Appropriate mood and affect. Total time spent with patient discussing and formulating plan of care: 35 minutes. This medical document was created using an electronic medical record system with [employer] dictation system. Although this document has been carefully reviewed, there may still be some phonetic and typographical errors. These areas are purely typographical due to imperfections of the software programs, and do not reflect any compromise in the patient's medical care. Condition at Discharge: Good Final Diagnosis/Problems List Chest pain, ACS ruled out. Secondary diagnosis: -History of use amphetamine use -Accelerated hypertension Discharge Disposition: Home Discharge Instruct/Medications Diet: Regular Activity: No Restrictions, As Tolerated Follow Up/Referral: Follow up with the PCP in 1-2 weeks Medications: Continue all home medications 36 Discharge Statement: "Patient was advised to return to the ER or call 911 if any headaches, dizziness, shortness of breath, chest pain, abdominal pain, bleeding, fevers, or worsening of medical condition. Patient was counseled about treatment plan, medications, possible side effects, patientverbalized understanding. All questions were answered to the best of my ability. This discharge took greater then 30 minutes in planning, reviewing documentation, counseling the patient, and discussing with other team members." ASSESSMENT ASSESSMENT Assessment Chest pain, ACS ruled out. Date of Service: Feb 26, 2025 Billing Provider: CRISTA WORTHINGTON NP Common Visit Codes: 42165-IHB/OBS DISCH DAY >30min Secondary Visit Codes: 49633-WEABO CHNG SMOKING >10MIN CRISTA WORTHINGTON NP Feb 26, 2025 14:04
== END 2025-02-26 15:45 | disposition home or self-care (01) | DRG 192 ==
LOC: ER 10:43 → OVERFLOW 16:31 → TELE-WESTW 02-25 19:55
PROVIDERS: ADMIT Nurse Practitioner Acute Care; ATTEND Nurse Practitioner Acute Care
PROC: B211YZZ Fluoroscopy of Multiple Coronary Arteries using Other Contrast (ICD-10-PCS; principal; 2025-02-25)
PROC: B215YZZ Fluoroscopy of Left Heart using Other Contrast (ICD-10-PCS; 2025-02-25)
PROC: 4A023N7 Measurement of Cardiac Sampling and Pressure, Left Heart, Percutaneous Approach (ICD-10-PCS; 2025-02-25)
DX: I16.0 Hypertensive urgency (principal); E78.5 Hyperlipidemia, unspecified; F15.90 Other stimulant use, unspecified, uncomplicated; F17.210 Nicotine dependence, cigarettes, uncomplicated; I10 Essential (primary) hypertension; L03.90 Cellulitis, unspecified; R73.03 Prediabetes; Z82.49 Family history of ischemic heart disease and other diseases of the circulatory system; Z88.8 Allergy status to other drugs, medicaments and biological substances; Z79.899 Other long term (current) drug therapy
CPT/HCPCS: 36415; 70450; 71046; 80048; 80053; 80061; 80307; 81001; 83036; 83880; 84443; 84484; 85025; 85610; 85730; 86850; 86900; 86901; 93005; 93306; 93458; 99152; 99291; G0378; J2250; J3490; Q9967